=== PATIENT | male | born 1980 | race Caucasian/White ===

== ENCOUNTER 2024-09-27 16:03 | Emergency (ER) | payer BC, OTHER ==
[~2024-09-27] VITALS: Ht 180.3 cm; Wt 110.0 kg
[2024-09-27 16:09] VITALS: O2SAT 100
[2024-09-27 16:38] LABS: HEMOGLOBIN. 17.5 g/dL (14.0-18.0); MEAN CORPUSCULAR HEMOGLOBIN 29.7 pg (28.0-32.0); MEAN CORPUSCULAR HGB CONC 35.1 g/dL (31.0-37.0); MEAN CORPUSCULAR VOLUME 84.7 fL (80.0-94.0); MEAN PLATELET VOLUME 8.2 fl (7.4-10.4); PLATELET 215 x1000/uL (130-400); RED CELL DISTRIBUTION WIDTH 13.9 % (11.6-14.6); WHITE BLOOD COUNT 19.4 x1000/uL (4.5-11.0)
[2024-09-27 16:39] LABS: DIFFERENTIAL COMMENT 1
[2024-09-27 16:44] LABS: CHLORIDE 105 mEq/L (98-107); POTASSIUM 4.1 mEq/L (3.5-5.1); SODIUM 139 mEq/L (136-145)
[2024-09-27 16:45] LABS: CARBON DIOXIDE 25 mEq/L (21-32)
[2024-09-27 16:46] LABS: CALCIUM 10.3 mg/dL (8.7-10.4)
[2024-09-27 16:50] LABS: CREATININE 0.9 mg/dL (0.6-1.3); GLUCOSE 170 mg/dL (70-105); UREA NITROGEN BLOOD 14 mg/dL (9-23)
[2024-09-27] MEDS ORDERED: DICYCLOMINE 10 MG/5 ML ORAL SYR PO STA (16:53)
[2024-09-27 16:54] LABS: TROPONIN I HIGH SENSITIVITY < 4 ng/L (3.0-53)
[2024-09-27 16:56] LABS: PLATELET ESTIMATE NORMAL
[2024-09-27] MEDS: MAGNESIUM/ALUMINUM HYDROXIDE/SIMETHICONE 30ML UDC PO STA (17:05)
[2024-09-27] MEDS: FAMOTIDINE 20MG TABLET PO ONE (17:05)
[2024-09-27] MEDS: ONDANSETRON 4MG ODT PO STA (17:05)
[2024-09-27] MEDS: DICYCLOMINE HCL 10MG CAPSULE PO SCH (17:06)
[2024-09-27 17:09] LABS: ETHANOL BLOOD < 10 mg/dL (<10)
[2024-09-27 17:11] LABS: ALANINE AMINOTRANSFERASE 43 IU/L (10-49); ALBUMIN 5.2 g/dL (3.2-4.8); ASPARTATE AMINOTRANSFERASE 24 IU/L (<34); BILIRUBIN DIRECT 0.3 mg/dL (<=3.0); BILIRUBIN TOTAL 0.9 mg/dL (0.1-1.0)
[2024-09-27] MEDS ORDERED: CIPR750T4 MT (18:09)
[2024-09-27] MEDS ORDERED: ONDA-239 PO (18:09)
[2024-09-27 18:23] VITALS: BP 128/98; PULSE 95; RESP 18; TEMP 36.9; O2SAT 100
== END 2024-09-27 18:24 | disposition home or self-care (01) ==
LOC: ER 16:03
DX: A08.4 Viral intestinal infection, unspecified (principal); R19.7 Diarrhea, unspecified; I10 Essential (primary) hypertension; E78.00 Pure hypercholesterolemia, unspecified; E11.9 Type 2 diabetes mellitus without complications; Z79.899 Other long term (current) drug therapy; Z98.890 Other specified postprocedural states
CPT/HCPCS: 80076; 80048; 80320; 83690; 85025; 84484; 36415; 71045; 74176; 93005; 99285; Q0162; G0480